=== PATIENT | female | born 1955 | race African-American/Black ===

== ENCOUNTER 2017-06-15 17:15 | Emergency (ER) | payer OTHER ==
[~2017-06-15 17:15] MED LIST: Iopamidol 370 76% 100 ML VIAL ONE
[2017-06-15 17:59] LABS: #Basophils 0.1 thou/uL (0.0-0.2); #Eosinphils 0.1 thou/uL (0.0-0.7); #Lymphocytes 2.3 thou/uL (1.20-3.40); #Monocytes 0.3 thou/uL (0.11-0.59); #Neutrophils 3.1 thou/uL (1.40-6.50); %Basophils 1.8 % (0.0-1.0); %Eosinophils 1.8 % (0.0-10.0); %Lymphocytes 38.5 % (21.0-51.0); %Monocytes 5.8 % (0.0-10.0); Hematocrit 38.1 % (36.0-47.0); Mean Platelet Volume 8.3 fL (7.4-10.4); Red Blood Cell (RBC) Count 4.45 mill/uL (4.20-5.40); White Blood Cell (WBC) Count 5.9 thou/uL (4.8-10.8)
[2017-06-15 18:15] LABS: ALT (SGPT) 38 U/L (8-55); AST (SGOT) 28 U/L (5-34); Alkaline Phosphatase 76 U/L (40-150); Anion Gap 13 mmol/L (10-20); BUN (Urea Nitrogen) 16 mg/dL (9.8-20.1); Bilirubin, Total 0.4 mg/dL (0.2-1.2); Calc. Creatinine Clearance 0 mL/min (70-130); Calcium 9.3 mg/dL (7.8-10.44); Carbon Dioxide 26 mmol/L (23-31); Chloride 107 mmol/L (98-107); Estimated GFR-MDRD 81; Globulin 3.3 g/dL (2.4-3.5); Lipase 44 U/L (8-78); Protein, Total 7.4 g/dL (6.0-8.3); Troponin I Less than 0.010 ng/mL (< 0.028)
[2017-06-15] MEDS ORDERED: Lorazepam 2 MG/ML VIAL ONE ×2 (19:08→19:09)
[2017-06-15] MEDS ORDERED: Diazepam 10 MG/2 ML SYRINGE ONE (19:11)
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
--- NOTE | 2017-06-20 17:08 | EKG ---
Test Reason : CP Blood Pressure : / mmHG Vent. Rate : 092 BPM Atrial Rate : 092 BPM P-R Int : 162 ms QRS Dur : 070 ms QT Int : 360 ms P-R-T Axes : 036 -21 000 degrees QTc Int : 445 ms Normal sinus rhythm Moderate voltage criteria for LVH, may be normal variant Borderline ECG Confirmed by MAIRA NULL D.O. ([id number]), proposal editor GISSEL FOWLER ([id number]) on 06/20/2017 5:07:36 PM Referred By: MD NULL Confirmed By:MAIRA NULL D.O.
== END 2017-06-15 20:15 | disposition home or self-care (01) ==
LOC: SCSER 17:15
DX: S16.1XXA Strain of muscle, fascia and tendon at neck level, initial encounter (principal); M54.6 Pain in thoracic spine; S09.90XA Unspecified injury of head, initial encounter; I10 Essential (primary) hypertension; V43.62XA Car passenger injured in collision with other type car in traffic accident, initial encounter
CPT/HCPCS: 70450; 71260; 72125; 74177; 80053; 83690; 84484; 85025; 93005; 96361; 96374; 96375; J2060; J2270; J3360

== ENCOUNTER 2017-09-24 09:53 | Outpatient (CLI) | payer OTHER ==
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
== END 2017-09-24 09:54 | disposition home or self-care (01) ==
LOC: CT 09:53
PROVIDERS: ATTEND Family Medicine
DX: S42.002D Fracture of unspecified part of left clavicle, subsequent encounter for fracture with routine healing (principal); M50.122 Cervical disc disorder at C5-C6 level with radiculopathy; M50.123 Cervical disc disorder at C6-C7 level with radiculopathy; M47.812 Spondylosis without myelopathy or radiculopathy, cervical region
CPT/HCPCS: 71250; 72125

== ENCOUNTER 2018-08-17 10:05 | Outpatient (CLI) | payer OTHER | END 2018-08-17 10:06 | disposition home or self-care (01) | LOC: BICMAMMO 10:05 | PROVIDERS: ATTEND Family Medicine | DX: Z12.31 Encounter for screening mammogram for malignant neoplasm of breast (principal); Z85.3 Personal history of malignant neoplasm of breast | CPT/HCPCS: 77063; 77067 ==

== ENCOUNTER 2019-06-07 13:07 | Outpatient (CLI) | payer MEDICARE ==
--- NOTE | 2019-06-07 14:26 | MRI ---
MRI CERVICAL SPINE WITHOUT CONTRAST: HISTORY: Cervical radiculopathy. COMPARISON: None. FINDINGS: The craniocervical junction is unremarkable. Degenerative endplate edema, compatible with Modic type I signal alteration is present at C6-7 level. C1-2:Degenerative hypertrophy without significant stenosis. C2-3:Disc osteophyte with mild narrowing of central canal. No high-grade foraminal stenosis. C3-4:Broad-based disc osteophyte with mild central canal stenosis. Bilateral uncinate processes and f acet hypertrophy with moderate bilateral neural frontal stenosis. C4-5:Disc osteophyte with moderate central canal stenosis and ventral cord flattening. There is sever e left and moderate right neural foraminal stenosis when combined with uncinate process and facet hypertrophy. C5-6:Broad-based disc osteophyte, left asymmetric, with mild to moderate central canal stenosis and v entral cord flattening. There is bilateral uncinate process and facet hypertrophy with moderate left and moderate to severe right neural foraminal stenosis. C6-7: There is a moderate to large left paracentral through subarticular disc protrusion superimposed upon disc osteophyte with moderate to severe central canal stenosis and prominent cord compression. There is associated cord signal abnormality related to cord edema. C7-T1:There is right asymmetric broad-based disc osteophyte with moderate central canal stenosis and ventral cord flattening. Moderate right and [id number] left neural foraminal stenosis. IMPRESSION: Multilevel degenerative change throughout the cervical spine which is most pronounced at C6-7 with mo derate to severe central canal stenosis, prominent cord compression and associated cord edema. Transcribed Date/Time: 06/07/2019 2:30 PM
== END 2019-06-07 13:08 | disposition home or self-care (01) ==
LOC: BICMRI 13:07
PROVIDERS: ATTEND Family Medicine
DX: M47.22 Other spondylosis with radiculopathy, cervical region (principal); M48.02 Spinal stenosis, cervical region
CPT/HCPCS: 72141

== ENCOUNTER 2019-07-07 06:29 | Outpatient (CLI) | payer MEDICARE ==
[2019-07-07 10:57] LABS: Hemoglobin 13.6 g/dL (12.0-16.0); Mean Corpuscular HGB CONC 33.4 g/dL (32.0-36.0); Mean Corpuscular Hemoglobin 30.2 pg (27.0-31.0); Mean Corpuscular Volume 90.4 fL (78.0-98.0); Mean Platelet Volume 8.2 fL (7.4-10.4); Platelet Count 252 thou/uL (130-400); RBC Distribution Width 12.8 % (11.5-14.5); Red Blood Cell (RBC) Count 4.49 mill/uL (4.20-5.40); White Blood Cell (WBC) Count 5.6 thou/uL (4.8-10.8)
[2019-07-07 11:00] LABS: INR-International Normal Ratio 0.9; PTT 29.3 SEC (22.9-36.1); Prothrombin Time 12.1 SEC (12.0-14.7)
[2019-07-07 12:37] LABS: BUN (Urea Nitrogen) 21 mg/dL (9.8-20.1); Calc. Creatinine Clearance 0 mL/min (70-130); Calcium 9.9 mg/dL (7.8-10.44); Carbon Dioxide 27 mmol/L (23-31); Chloride 101 mmol/L (98-107); Estimated GFR-MDRD 67; Glucose 107 mg/dL (80-115); Potassium 3.3 mmol/L (3.5-5.1); Sodium 141 mmol/L (136-145)
[2019-07-07 14:50] LABS: Anion Gap 16 mmol/L (10-20)
--- NOTE | 2019-07-07 16:51 | EKG ---
Test Reason : Blood Pressure : / mmHG Vent. Rate : 084 BPM Atrial Rate : 084 BPM P-R Int : 186 ms QRS Dur : 078 ms QT Int : 358 ms P-R-T Axes : 061 005 017 degrees QTc Int : 423 ms Normal sinus rhythm Nonspecific T wave abnormality Abnormal ECG Confirmed by AMINAH FLAHERTY ([id number]) on 07/07/2019 4:50:51 PM Referred By: ARIEL Confirmed By:AMINAH FLAHERTY
== END 2019-07-07 06:30 | disposition home or self-care (01) ==
LOC: LABBT 06:29
PROVIDERS: ATTEND Surgery
DX: Z01.818 Encounter for other preprocedural examination (principal); M48.02 Spinal stenosis, cervical region; M50.10 Cervical disc disorder with radiculopathy, unspecified cervical region; M50.00 Cervical disc disorder with myelopathy, unspecified cervical region
CPT/HCPCS: 80048; 85027; 85610; 85730; 93005; 93010

== ENCOUNTER 2019-07-07 09:15 | Inpatient (IN) | payer MEDICARE ==
[2019-07-07 09:42] VITALS: BMI 31.7
[2019-07-14] MEDS ORDERED: Sodium Chloride 0.9% 10 ML ONE (06:38)
[2019-07-14] MEDS ORDERED: Thrombin 5000 UNITS/5 ML VIAL ONE (06:38)
[2019-07-14] MEDS ORDERED: Bacitracin Zinc Ointment 30 gm TUBE ONE (06:38)
[2019-07-14] MEDS ORDERED: Fentanyl 100 MCG/2 ML VIAL ONE ×3 (07:18→11:53)
[2019-07-14] MEDS ORDERED: Midazolam HCl 2 mg/2 ml Vial ONE (07:19)
[2019-07-14] MEDS ORDERED: Ondansetron HCl/PF 4 MG/2 ML Vial IVP PRN (10:31)
[2019-07-14] MEDS ORDERED: Promethazine HCl 25 MG/ML VIAL SLOW IVP PRN (10:31)
[2019-07-14] MEDS ORDERED: Morphine Sulfate 2 MG/ML SYRINGE SLOW IVP PRN (10:31)
[2019-07-14] MEDS ORDERED: Promethazine HCl 25 MG/ML VIAL IM PRN (10:31)
[2019-07-14] MEDS ORDERED: HYDROmorphone 2 MG/ML VIAL SLOW IVP PRN (10:31)
[2019-07-14] MEDS ORDERED: PACU-Morphine 4MG/ML VIAL SLOW IVP PRN (10:31)
[2019-07-14] MEDS ORDERED: Metoclopramide HCl 10 MG/2 ML VIAL ONE (11:05)
[2019-07-14] MEDS ORDERED: Glycopyrrolate 0.2 MG/ML 5 ML SYRINGE ONE (11:05)
[2019-07-14] MEDS ORDERED: Rocuronium Bromide 10 MG/ML (10ML VIAL) ONE (11:05)
[2019-07-14] MEDS ORDERED: Lidocaine 1% PF 5 ML VIAL ONE (11:05)
[2019-07-14] MEDS ORDERED: PROPOFOL 200 MG/20 ML VIAL ONE (11:05)
[2019-07-14] MEDS ORDERED: Ondansetron PF 4 MG/2 ML Vial ONE (11:05)
[2019-07-14] MEDS ORDERED: Dexamethasone 20 MG/5 ML VIAL ONE (11:05)
[2019-07-14] MEDS ORDERED: Acetaminophen/Codeine 30-300mg Tablet PO PRN (11:24)
[2019-07-14] MEDS ORDERED: Bisacodyl 10 MG SUPP PR PRN (11:24)
[2019-07-14] MEDS ORDERED: traMADol HCl 50 MG TAB PO PRN (11:24)
[2019-07-14] MEDS ORDERED: Acetaminophen 325 MG TAB PO PRN (11:24)
[2019-07-14] MEDS ORDERED: Mag-Al 1200 mg/1200 mg/30 ML UDCUP PO PRN (11:24)
[2019-07-14] MEDS ORDERED: Milk Of Magnesia 30 ML UDCUP PO PRN (11:24)
[2019-07-14] MEDS ORDERED: Morphine 2 MG/ML SYRINGE SLOW IVP PRN (11:24)
[2019-07-14] MEDS ORDERED: Fleet Enema 133 ML BOT PR PRN (11:24)
[2019-07-14] MEDS ORDERED: Ergocalciferol 1.25 MG(50,000 UNITS) CAP PO SCH (11:30)
--- NOTE | 2019-07-14 12:57 | OP ---
DATE OF PROCEDURE: 07/14/2019 LOCATION: OR 11. WOUND CLASSIFICATION: Type 1 wound. NON PROFIT DIRECTOR: Sonido Gtz PA-C PREPROCEDURE DIAGNOSES: Cervical myelopathy with radiculopathy with multilevel cervical stenosis. POSTPROCEDURE DIAGNOSES: Cervical myelopathy with radiculopathy with multilevel cervical stenosis. PROCEDURES PERFORMED: 1. Anterior C4-C5, C5-C6, and C6-C7 diskectomies for decompression of spinal cord nerve roots. 2. Placement of interbody spacer packed with local bone autograft obtained at same incision, and allograft at C4-C5, C5-C6, and C6-C7. 3. Use of operative microscope for microdissection. 4. Anterior cervical plate and screw fixation; C4, C5, C6, and C7. DESCRIPTION OF PROCEDURE: After informed consent was obtained from the patient, the patient was brought to the OR. Proper patient, pause, and identification were carried out. Right anterior oblique cindy was drawn out. This region was sterilely cleansed, prepared, and draped. Proper patient, pause, and identification were carried out. She was then placed under excellent general endotracheal anesthesia and positioned supine on the OR table. All appropriate points were padded. Again, the right anterior oblique cindy was drawn out. This region was sterilely cleansed, prepared, and draped. Proper patient, pause, and identification were carried out. The wound was then opened with combination of sharp, monopolar, and blunt dissection, proceeded lateral to the tracheoesophageal bundle. On a right medial to the right carotid sheath, we identified the prevertebral layer of deep cervical fascia. This was retracted. Localization film confirmed area of interest, we then performed distraction at C4-C5 and diskectomy at C4-C5 with decompression of neural elements. Then, turned our attention to preparation of the endplates and placement of interbody spacer at C4-C5, packed with graft for initiation of arthrodesis. We then did the same thing at C5-C6 and C6-C7 with the decompression of neural elements and placement of interbody spacers at each of those segments for arthrodesis. We are pleased with the decompression and the placement of interbody spacers. We then for arthrodesis at C4-C5, C5-C6, and C6-C7 anterior cervical plate and screw fixation at C4, C5, C6, and C7 then occurred and copious irrigation occurred throughout. The wound was then copiously irrigated. Following copious irrigation, wound was maximized hemostasis. She then awoken. We did place a drain. Job ID: [id number]
[2019-07-14] MEDS: HYDROcodone/Acetaminophen 7.5/325 mg Tablet PO PRN ×3 (13:15→21:45)
[2019-07-14] MEDS: tiZANidine HCl 4 MG TAB PO PRN ×2 (13:16→21:10)
[2019-07-14] MEDS: CEFAZOLIN 2 GM in Premix Bag 1 BAG IVPB SCH ×2 (13:19→21:11)
[2019-07-14] MEDS ORDERED: Losartan/Hydrochlorothiazide 100 mg/25 mg Tablet PO SCH (13:45)
[2019-07-14] MEDS: Ondansetron PF 4 MG/2 ML Vial IVP PRN ×2 (16:36→21:07)
[2019-07-14] MEDS: Sodium Chloride 0.9% 1,000 ML IV SCH ×2 (17:49)
[2019-07-15] MEDS: HYDROcodone/Acetaminophen 7.5/325 mg Tablet PO PRN ×3 (01:56→10:48)
[2019-07-15] MEDS: Sodium Chloride 0.9% 1,000 ML IV SCH (05:55)
[2019-07-15] MEDS: CEFAZOLIN 2 GM in Premix Bag 1 BAG IVPB SCH (06:01)
[2019-07-15] MEDS: Ondansetron PF 4 MG/2 ML Vial IVP PRN (06:06)
[2019-07-15] MEDS ORDERED: metFORMIN 500 MG TAB PO SCH (09:00)
[2019-07-15] MEDS ORDERED: Losartan/Hydrochlorothiazide 100 mg/25 mg Tablet PO SCH (09:00)
[2019-07-15] MEDS ORDERED: Pantoprazole 40 MG VIAL IVP SCH (09:00)
[2019-07-15] MEDS ORDERED: Prevnar 13-Val Conj/PF 0.5 ML SYRINGE IM ONE (09:00)
[2019-07-15] MEDS ORDERED: Dexamethasone 20 MG/5 ML VIAL SLOW IVP SCH (09:00)
[2019-07-15 11:43] VITALS: BP 151/89; TEMP 98.1
--- NOTE | 2019-07-15 12:38 | DIS ---
DATE OF ADMISSION: 07/14/2019 DATE OF DISCHARGE: 07/15/2019 This is Sonido Gtz PA-C dictating a report for Kp Peña MD. DISCHARGE DIAGNOSES: 1. Cervical spondylosis with myelopathy. 2. History of breast cancer with mastectomy. 3. Coronary artery disease. 4. Type-2 diabetes mellitus. 5. Hypertension. HOSPITAL COURSE: Ms. Claire was admitted to undergo C4-C7 ACDF with Dr. Peña. One SHARLA drain was placed and the patient's surgery was without complications. She required one overnight stay for adequate pain control as well as monitoring of her drain output. The patient had significant improvement in bilateral upper extremity symptoms with some minor right shoulder pain. She was tolerating a full liquid diet and was able to tolerate pills. She had good strength in all the extremities especially into the bilateral upper extremities. Her SHARLA drain was removed, and appropriate patient education and outpatient followups were provided to the patient. She is wearing a well-fitting [place] J collar. She will continue this as instructed. She will hold her aspirin for 7 days postop. She and her were updated at bedside. They certainly understood to call the office with questions or concerns. They were both pleased with her outcome postoperatively. Job ID: [id number]
== END 2019-07-15 13:00 | disposition home health service (06) | DRG 472 ==
LOC: SURG A 07-14 05:58 → SJJU 07-14 12:57
PROVIDERS: ADMIT Surgery; ATTEND Surgery
PROC: 0RG20A0 Fusion of 2 or more Cervical Vertebral Joints with Interbody Fusion Device, Anterior Approach, Anterior Column, Open Approach (ICD-10-PCS; principal; 2019-07-14)
PROC: 0RB30ZZ Excision of Cervical Vertebral Disc, Open Approach (ICD-10-PCS; 2019-07-14)
PROC: 01N10ZZ Release Cervical Nerve, Open Approach (ICD-10-PCS; 2019-07-14)
PROC: 00NW0ZZ Release Cervical Spinal Cord, Open Approach (ICD-10-PCS; 2019-07-14)
DX: M48.02 Spinal stenosis, cervical region (principal); M47.12 Other spondylosis with myelopathy, cervical region; M54.12 Radiculopathy, cervical region; I10 Essential (primary) hypertension; E11.9 Type 2 diabetes mellitus without complications; M19.91 Primary osteoarthritis, unspecified site; F41.9 Anxiety disorder, unspecified; Z90.710 Acquired absence of both cervix and uterus; Z90.12 Acquired absence of left breast and nipple; Z85.3 Personal history of malignant neoplasm of breast; I25.10 Atherosclerotic heart disease of native coronary artery without angina pectoris
CPT/HCPCS: 76000; 90471; 90670; C1776; C9113; G0009; J0131; J0690; J1100; J2001; J2250; J2270; J2405; J2704; J2765; J3010; J3490

== ENCOUNTER 2019-07-18 04:05 | Emergency (ER) | payer MEDICARE ==
[2019-07-18] MEDS ORDERED: diphenhydrAMINE 25 MG CAP ONE (04:26)
== END 2019-07-18 05:15 | disposition home or self-care (01) ==
LOC: ERS 04:05
DX: L25.9 Unspecified contact dermatitis, unspecified cause (principal); K21.9 Gastro-esophageal reflux disease without esophagitis; I10 Essential (primary) hypertension; Z79.899 Other long term (current) drug therapy
CPT/HCPCS: 36416; 93005; Q0163

== ENCOUNTER 2019-08-29 08:56 | Outpatient (CLI) | payer MEDICARE ==
--- NOTE | 2019-08-29 09:26 | RAD ---
Exam: 4 VIEWS CERVICAL SPINE: HISTORY: Cervical fusion 6 weeks ago. Neck pain. FINDINGS: On the open-mouth projection, lateral masses of C1 and C2 articulate appropriately. Intact odontoid p rocess. On the AP projection, multilevel facet arthropathy. Cervical spine vertebral body heights are maintai ronald. No fracture. Predental space is normal. No significant prevertebral soft tissue swelling. Cervical fusion with transvertebral body screw at C4, C5, C6 and C7. No perihardware lucency. Disc pr osthesis at C4-C5, C5-C6 and C6-7. Cervicothoracic junction is limited in evaluation. Internal fixation plate projects over the medial left clavicle. IMPRESSION: Uncomplicated cervical fusion. Transcribed Date/Time: 08/29/2019 9:48 AM
== END 2019-08-29 08:57 | disposition home or self-care (01) ==
LOC: TBSIIMAG 08:56
PROVIDERS: ATTEND Surgery
DX: M54.2 Cervicalgia (principal); Z98.1 Arthrodesis status
CPT/HCPCS: 72040

== ENCOUNTER 2020-06-15 09:13 | Outpatient (CLI) | payer MEDICARE ==
--- NOTE | 2020-06-15 10:15 | MMO ---
Bilateral MAMMO Bilat Screen [facility]DI+BLESSING. CLINICAL HISTORY: Patient is 64 years old and is seen for screening. The patient has no family history of breast cancer. The patient has a history of left Excisional Biopsy in 1997 - malignant, left Mastectomy in 1997 - malignant and right Excisional Biopsy in 1998 - benign. VIEWS: The views performed were: right craniocaudal with tomosynthesis; right mediolateral oblique with tomosynthesis; and right exaggerated craniocaudal. FILMS COMPARED: The present examination has been compared to prior imaging studies performed at [facility] on 12/13/2014, 02/07/2016, 03/06/2017 and 08/17/2018. This study has been interpreted with the assistance of computer-aided detection. MAMMOGRAM FINDINGS: The breast is heterogeneously dense, which could obscure a lesion on mammography. There are no suspicious masses, suspicious calcifications, or new areas of architectural distortion. IMPRESSION: THERE IS NO MAMMOGRAPHIC EVIDENCE OF MALIGNANCY. A ROUTINE FOLLOW-UP MAMMOGRAM IN 1 YEAR IS RECOMMENDED. THE RESULTS OF THIS EXAM WERE SENT TO THE PATIENT. ACR BI-RADS Category 1 - Negative MAMMOGRAPHY NOTE: 1. A negative mammogram report should not delay a biopsy if a dominant of clinically suspicious mass is present. 2. Approximately 10% to 15% of breast cancers are not detected by mammography. 3. Adenosis and dense breasts may obscure an underlying neoplasm. Reported by: GIGI OBRIEN MD Electonically Signed: [id number]
--- NOTE | 2020-06-15 12:30 | BD ---
DEXA BONE DENSITY STUDY: Date: 06/15/2020 HISTORY: Postmenopausal. FINDINGS: Lumbar Spine: BMD (g/cm2) L1 1.272 T-Score: +2.6 L2 1.249 T-Score: +2.1 L3 1.254 T-Score: +1.5 L4 1.300 T-Score: +2.2 Total 1.270 T-Score: +2.0 Left Femoral Neck: 0.994 T-Score: +1.3 Total Femur: 1.228 T-Score: +2.8 IMPRESSION: Normal bone mineral density of the lumbar spine and left femoral neck. POS: JOSE
== END 2020-06-15 09:14 | disposition home or self-care (01) ==
LOC: BICMAMMO 09:13
PROVIDERS: ATTEND Family Medicine
DX: Z12.31 Encounter for screening mammogram for malignant neoplasm of breast (principal); Z78.0 Asymptomatic menopausal state; Z90.12 Acquired absence of left breast and nipple; Z85.3 Personal history of malignant neoplasm of breast
CPT/HCPCS: 77063; 77067; 77080

== ENCOUNTER 2020-12-04 15:36 | Outpatient (CLI) | payer MEDICARE, OTHER | END 2020-12-04 15:37 | disposition home or self-care (01) | LOC: BICMRI 15:36 | PROVIDERS: ATTEND Orthopaedic Surgery | DX: M25.511 Pain in right shoulder (principal); M75.111 Incomplete rotator cuff tear or rupture of right shoulder, not specified as traumatic ==

== ENCOUNTER 2021-06-26 09:31 | Outpatient (CLI) | payer MEDICARE | END 2021-06-26 09:32 | disposition home or self-care (01) | LOC: BICMAMMO 09:31 | PROVIDERS: ATTEND Family Medicine | DX: Z12.31 Encounter for screening mammogram for malignant neoplasm of breast (principal); Z85.3 Personal history of malignant neoplasm of breast; Z91.89 Other specified personal risk factors, not elsewhere classified; Z90.12 Acquired absence of left breast and nipple | CPT/HCPCS: 77063; 77067 ==

== ENCOUNTER 2023-08-18 08:56 | Outpatient (CLI) | payer MEDICARE | END 2023-08-18 08:57 | disposition home or self-care (01) | LOC: BICMAMMO 08:56 | PROVIDERS: ATTEND Family Medicine | DX: Z12.31 Encounter for screening mammogram for malignant neoplasm of breast (principal); Z80.3 Family history of malignant neoplasm of breast; Z91.89 Other specified personal risk factors, not elsewhere classified | CPT/HCPCS: 77063; 77067 ==

== ENCOUNTER 2024-03-11 08:26 | Outpatient (CLI) | payer MEDICARE | END 2024-03-11 08:27 | disposition home or self-care (01) | LOC: BICULT 08:26 | PROVIDERS: ATTEND Internal Medicine Gastroenterology | DX: R10.11 Right upper quadrant pain (principal); K76.0 Fatty (change of) liver, not elsewhere classified | CPT/HCPCS: 76705 ==